=== PATIENT | male | born 1990 | race Hispanic/Latino ===

== ENCOUNTER 2018-05-25 17:58 | Emergency (ER) | payer SELFPAY ==
[2018-05-25 20:13] VITALS: RESP 18; BMI 34.7
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
[2018-05-26 00:17] VITALS: BP 160/70; PULSE 82; TEMP 97.9; O2SAT 97
--- NOTE | 2018-05-26 14:17 | RAD ---
Date of service: 05/25/2018 PROCEDURE: Radiographs of the Lumbar Spine. HISTORY: Back Pain. No history of recent/ related trauma provided COMPARISON: No prior. FINDINGS: BONES: Mild dextroscoliosis. No listhesis. No fracture. DISC SPACES: Unremarkable. OTHER FINDINGS: None. IMPRESSION: No significant or acute findings to account for/ related to the clinical presentation.
--- NOTE | 2018-05-26 14:18 | RAD ---
Date of service: 05/25/2018 PROCEDURE: Left Knee Radiographs. HISTORY: Pain. COMPARISON: None. FINDINGS: BONES: Normal. No fracture. JOINTS: Normal. No osteoarthritis. JOINT EFFUSION: None. OTHER FINDINGS: None. IMPRESSION: Normal radiographs of the left knee.
--- NOTE | 2018-05-26 20:24 | US ---
PROCEDURE: Left lower extremity venous US HISTORY: Leg pain and swelling. Evaluate for DVT. PHYSICIAN(S): Marv Ellington MD. TECHNIQUE: Duplex sonography and color-flow Doppler with graded compression were used to evaluate the deep venous system of the left lower extremity. FINDINGS: The visualized deep venous system of the left lower extremity is sonographically normal and compressible. Normal wave forms and augmentation are seen. There is no sonographic evidence for deep venous thrombosis in the visualized segments of the left lower extremity. IMPRESSION: 1. No sonographic evidence for deep venous thrombosis in the visualized segments of the left lower extremity.
== END 2018-05-25 21:40 | disposition home or self-care (01) ==
LOC: ED 17:58
DX: M25.562 Pain in left knee (principal); M54.5 Low back pain; E66.01 Morbid (severe) obesity due to excess calories